=== PATIENT | male | born 1965 | race Hispanic/Latino ===

== ENCOUNTER 2018-06-29 07:53 | Emergency (ER) | payer BC, OTHER | END 2018-06-29 08:20 | disposition home or self-care (01) | LOC: SCSER 07:53 | DX: M54.5 Low back pain (principal); I10 Essential (primary) hypertension; K21.9 Gastro-esophageal reflux disease without esophagitis; E11.9 Type 2 diabetes mellitus without complications | CPT/HCPCS: 99283 ==